=== PATIENT | male | born 1975 | race Hispanic/Latino ===

== ENCOUNTER 2017-09-11 06:09 | Emergency (ER) | payer BC ==
[2017-09-11] MEDS ORDERED: NA CHLORIDE 0.9% 500 ML ONE (06:36)
[2017-09-11 06:56] LABS: BUN Blood Urea Nitrogen 12 mg/dL (6-20); Bicarbonate 21 mEq/L (21-31); Glucose Level 117 mg/dL (65-120); Potassium 3.3 mEq/L (3.6-5.0); Sodium Level 139 mEq/L (135-145)
[2017-09-11 07:01] LABS: Absolute Lymphocytes (CBC) 2.5 K/uL (0.7-4.9); Absolute Monocytes 0.5 K/uL (0.1-1.3); Absolute Neutrophil 3.9 K/uL (1.8-8.0); Basophils % 0.4 % (0-1.3); Eosinophils % 1.3 % (0-4.4); Hematocrit 47.5 % (39.6-49.0); Lymphocytes % 35.7 % (15.3-44.8); MCH 28.6 pg (27.0-35.0); MCV 83.6 fL (80-100); MPV 8.2 fL (7.6-11.3); Monocytes % 6.7 % (3.3-12.3); RBC Red Blood Cell Count 5.69 M/uL (4.33-5.43)
[2017-09-11] MEDS ORDERED: FENTANYL CITR 100 MCG/2 ML ONE (07:22)
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
[2017-09-11] MEDS ORDERED: AMPICILLIN/SULBACT 3 GM in NA CHLORIDE 0.9% 100 ML IVPB ONE (07:45)
[2017-09-11] MEDS ORDERED: TETANUS & DIPHTHERIA TOX,ADULT 0.5 ML VIAL ONE (07:56)
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
== END 2017-09-11 08:16 | disposition short-term general hospital (02) ==
LOC: ER 06:09
DX: S06.4X0A Epidural hemorrhage without loss of consciousness, initial encounter (principal); V28.4XXA Motorcycle driver injured in noncollision transport accident in traffic accident, initial encounter; Z23 Encounter for immunization
CPT/HCPCS: 36415; 70450; 71260; 72125; 74177; 80048; 85025; 86850; 86900; 86901; 90714; 96361; 96365; 96375; 99285; J0295; J3010; Q9967